=== PATIENT | female | born 1980 | race Caucasian/White ===

== ENCOUNTER 2017-02-16 09:39 | Emergency (ER) | payer OTHER ==
[2017-02-16 10:26] VITALS: BMI 31.6
--- NOTE | 2017-02-16 10:35 | OBHP ---
Datetime: 02/16/2017 10:31 IP Adm Impression: , intrauterine IP Chief Complaint Other: send for bp check Admit Comment, IP Provider: at 34.4weeks send from pmd for bp check. pt c/o heart burn, no heda mamadou or b;urry vision, no ctxs, vb, lof,+fm. obhx 3 x c/s pmh den med pnv all nkda psh c/s soch de a/p 4p3 at 34+weeks r/o pih cbc/bmp/ua/ptt/pt/liver bp mon cont close obser Pelvic Type - PN: Adequate Extremities - PN: Normal Abdomen - PN: Normal Back - PN: Normal Breast - PN: Normal Lungs - PN: Normal Heart - PN: Normal Thyroid - PN: Normal Neurologic - PN: Normal HEENT - PN: Normal General - PN: Normal FHR - Baseline A Provider: 120 Contraction Comments Provider: none Comments, ACOG Physical Exam: gtravid,non tender ext no edema,no calf ten Vital Signs Provider: Reviewed; Within Normal Limits NICHD Variability Prov Fetus A: Moderate 6-25bpm NICHD Accel Fetus A IP Provider: 15X15 FHR Category Provider Fetus A: Category I Genitourinary Exam: Normal DTRs - PN: Normal
[2017-02-16 10:45] LABS: HEMATOCRIT 30.7 % (34.0-47.0); MEAN CORPUSCULAR HGB CONC 31.8 g/dL (33.0-37.0); RED CELL DISTRIBUTION WIDTH 17.1 % (11.5-14.5); WHITE BLOOD COUNT 10.1 K/uL (4.8-10.8)
[2017-02-16 10:46] LABS: MEAN CELL VOLUME 72.3 fL (81.0-99.0)
[2017-02-16 10:48] LABS: RBC URINE < 1 /hpf (0-3); URINE BACTERIA RARE (<OCC); URINE BILIRUBIN NEGATIVE (NEGATIVE); URINE BLOOD NEGATIVE (NEGATIVE); URINE COLOR Yellow (YELLOW); URINE GLUCOSE (UA) NORMAL (Normal); URINE KETONE NEGATIVE (NEGATIVE); URINE LEUKOCYTE ESTERASE NEG Leu/uL (Negative); URINE PROTEIN NEGATIVE (NEGATIVE); URINE UROBILINOGEN NORMAL mg/dL (0.2-1.0); WBC URINE 1 /hpf (0-5)
--- NOTE | 2017-02-16 10:57 | OBHP ---
Datetime: 02/16/2017 10:54 Admit Comment, IP Provider: pt was seen at bed side. feels ok bp normal blood work normal plan dc home po hyration preeclamptic s/s given f/[facility] clinic in 1week FHR - Baseline A Provider: 120 Contraction Comments Provider: none Vital Signs Provider: Reviewed; Within Normal Limits NICHD Variability Prov Fetus A: Moderate 6-25bpm NICHD Accel Fetus A IP Provider: 15X15 FHR Category Provider Fetus A: Category I
[2017-02-16 10:58] LABS: CHLORIDE 102 mmol/L (98-107); POTASSIUM 3.6 mmol/L (3.6-5.2); SODIUM 134 mmol/L (132-148)
--- NOTE | 2017-02-16 10:59 | OBDCSUM ---
Datetime: 02/16/2017 10:56 Discharged to, Provider: Home Follow up at, Provider: 1wee Follow up in weeks, Provider: clinic Discharge Comment, Provider: work normal plan dc home po hyration preeclamptic s/s given f/[facility] clinic in 1week Discharge Diagnosis Prov Other: 34 wee nst r/o pih
[2017-02-16 11:00] LABS: GFR AFRICAN-AMERICAN > 60
[2017-02-16 11:01] LABS: ALB/GLOB RATIO 0.8 (1.0-2.1); ALKALINE PHOSPHATASE 199 U/L (38-126); ALT/SGPT 23 U/L (9-52); AST/SGOT 17 U/L (14-36); BILIRUBIN,DIRECT 0.6 mg/dL (0.0-0.4); BILIRUBIN,TOTAL 0.7 mg/dL (0.2-1.3); BLOOD UREA NITROGEN 7 mg/dL (7-17); CALCIUM 8.6 mg/dl (8.6-10.4); CARBON DIOXIDE 21 mmol/L (22-30); GLUCOSE,RANDOM 81 mg/dL (65-105); TOTAL PROTEIN 7.1 g/dL (6.3-8.3)
== END 2017-02-16 10:56 | disposition home or self-care (01) ==
LOC: C.EROB 09:39
DX: O14.93 Unspecified pre-eclampsia, third trimester (principal); Z3A.34 34 weeks gestation of pregnancy

== ENCOUNTER 2017-03-21 07:34 | Inpatient (IN) | payer OTHER ==
[2017-03-21] MEDS ORDERED: cefOXitin IV 2 gm in Dextrose 2 GM/50 ML BAG IVPB ONE ×2 (07:48→09:04)
[2017-03-21] MEDS ORDERED: Sodium Citrate/Citric Acid 15 ml Sol PO ONE (07:48)
[2017-03-21] MEDS ORDERED: Lactated Ringer's 1,000 ML IV SCH (08:00)
[2017-03-21 08:03] VITALS: BMI 31.9
--- NOTE | 2017-03-21 08:20 | OBADHP ---
Datetime: 03/21/2017 08:02 Admit Comment, IP Provider: at 39+weeks her for schuled repeat c/s and btl,no ctxs, vb, lof,+fm .no hedache or blurry vision obhx 2 x c/s pmh ch htn med pnv all nkda psh c/s soch de a/p at 39-weeks previous c/s and btl admit to l_d npo/ivf labs pih labs pain ma anthesia aware skin atibiotics informed conset taken Comments, ACOG Physical Exam: gravid,non tender ext no edema,no calf ten IP Hx Assessment: The History has been Reviewed and is Current IP Chief Complaint: Scheduled Section EGA AdmitDate IP: 39.2 IP Adm Impression: Term, intrauterine ; No Active Labor IP Admit Plan: Admit to unit Datetime: 02/16/2017 10:54 Pelvic Type - PN: Adequate Extremities - PN: Normal Abdomen - PN: Normal Back - PN: Normal Breast - PN: Normal Lungs - PN: Normal Heart - PN: Normal Thyroid - PN: Normal Neurologic - PN: Normal HEENT - PN: Normal General - PN: Normal FHR - Baseline A Provider: 120 Contraction Comments Provider: none Vital Signs Provider: Reviewed; Within Normal Limits NICHD Variability Prov Fetus A: Moderate 6-25bpm NICHD Accel Fetus A IP Provider: 15X15 FHR Category Provider Fetus A: Category I Genitourinary Exam: Normal DTRs - PN: Normal Datetime: 02/16/2017 10:31 IP Chief Complaint Other: send for bp check
[2017-03-21 08:35] LABS: BASO # 0.1 K/uL (0.0-0.2); EOS # 0.1 K/uL (0.0-0.7); EOS % 1.2 % (0.0-4.0); HEMATOCRIT 31.9 % (34.0-47.0); LYMPH % 17.5 % (20.0-40.0); MEAN CELL VOLUME 70.4 fL (81.0-99.0); MEAN CORPUSCULAR HEMOGLOBIN 22.4 pg (27.0-31.0); MEAN CORPUSCULAR HGB CONC 31.8 g/dL (33.0-37.0); MEAN PLATELET VOLUME 10.6 fL (7.2-11.7); MONO # 0.7 K/uL (0.0-0.8); WHITE BLOOD COUNT 11.1 K/uL (4.8-10.8)
[2017-03-21 08:42] LABS: CHLORIDE 101 mmol/L (98-107)
[2017-03-21 08:43] LABS: POTASSIUM 3.8 mmol/L (3.6-5.2); SODIUM 135 mmol/L (132-148)
[2017-03-21 08:45] LABS: ALB/GLOB RATIO 0.9 (1.0-2.1); ALKALINE PHOSPHATASE 242 U/L (38-126); AST/SGOT 19 U/L (14-36); BILIRUBIN,DIRECT 0.5 mg/dL (0.0-0.4); BILIRUBIN,TOTAL 0.9 mg/dL (0.2-1.3); BLOOD UREA NITROGEN 5 mg/dL (7-17); CARBON DIOXIDE 20 mmol/L (22-30); GFR AFRICAN-AMERICAN > 60; GLUCOSE,RANDOM 84 mg/dL (65-105); TOTAL PROTEIN 7.2 g/dL (6.3-8.3); URINE BILIRUBIN NEGATIVE (NEGATIVE); URINE BLOOD NEGATIVE (NEGATIVE); URINE COLOR Yellow (YELLOW); URINE GLUCOSE (UA) NORMAL (Normal); URINE KETONE NEGATIVE (NEGATIVE); URINE LEUKOCYTE ESTERASE NEG Leu/uL (Negative); URINE PROTEIN NEGATIVE (NEGATIVE); URINE UROBILINOGEN NORMAL mg/dL (0.2-1.0)
[2017-03-21 08:46] LABS: ALT/SGPT 30 U/L (9-52); CALCIUM 8.9 mg/dl (8.6-10.4); INR 0.9
[2017-03-21] MEDS ORDERED: OXYTOCIN IV ONE (09:04)
[2017-03-21] MEDS ORDERED: LR IV ONE (09:04)
[2017-03-21] MEDS ORDERED: Sodium Citrate/Citric Acid 15 ml Sol ONE (09:04)
[2017-03-21] MEDS ORDERED: Oxytocin 10 Units/ml Inj ONE (09:08)
[2017-03-21] MEDS ORDERED: ePHEDrine 50 mg/ml Inj ONE (10:05)
[2017-03-21] MEDS ORDERED: Morphine 1 mg/ml preservative-free Inj(Duramorph) ONE (10:05)
[2017-03-21] MEDS ORDERED: DiphenhydrAMINE 50 mg/ml Inj IVP PRN (11:19)
[2017-03-21] MEDS ORDERED: Oxycodone/Acetaminophen 5/325 mg Tab PO PRN ×2 (12:23)
--- NOTE | 2017-03-21 12:27 | PCM.SURG1 ---
Surgeon's Initial Post Op Note - Surgeon's Notes Surgeon: dr ratliff Artillery Specialist: dr thompson Type of Anesthesia: Spinal Anesthesia Administered By: dr astorga Pre-Operative Diagnosis: 36 yr at 39+weeks previous section and bi ;atera;l section Operative Findings: see the op reoprt Post-Operative Diagnosis: same Operation Performed: repeat section and bilaterl tubal ligtion Specimen/Specimens Removed: portion of right and let tube. cord blood Estimated Blood Loss: EBL {In ML}: 800 Blood Products Given: N/A Drains Used: No Drains Post-Op Condition: Good Date of Surgery/Procedure: 03/21/17 Time of Surgery/Procedure: 11:00
--- NOTE | 2017-03-21 20:30 | OBDS ---
DELIVERY PERSONNEL Delivery Doctor: Erick Flores MD Scrub Nurse: Joy Piedra OBT Composing Machine Operator: Norah Rainey RN Anesthesiologist: Abbi David MD Resident: Jay Darnell MATERNAL INFORMATION Delivery Anesthesia: Spinal Medications in Delivery: 20 units pitocin Estimated Blood Loss (ml): 800 Placenta Cultured: No Maternal Complications: None Provider Comments: baby deliverd in rubio. endometrium clean no com btl done LABOR SUMMARY EDC: 03/26/2017 00:00 No. Babies in Womb: 1 STAGES OF LABOR Stage 3 hrs: 0 Stage 3 min: 1 CSECTION DELIVERY Primary Indication: Repeat Elective Secondary Indication: N/A CSection Urgency: Elective CSection Incidence: Repeat Labor: No Labor Elective: Elective CSection Incision: Lower Uterine Transverse Sterilization Procedure: Janneth BABY A INFORMATION Delivery Date/Time: 03/21/2017 10:31 Method of Delivery: Born in Route : No : N/A Forceps: N/A Vacuum Extraction: N/A Shoulder Dystocia : No SHOULDER DYSTOCIA BABY A Infant Delivery Date/Time: 03/21/2017 10:31 PRESENTATION/POSITION BABY A Presentation: Cephalic Cephalic Presentation: Vertex Vertex Position: Left Occipital Anterior Breech Presentation: N/A PLACENTA INFORMATION BABY A Placenta Delivery Time : 03/21/2017 10:32 Placenta Method of Delivery: Manual Removal Placenta Status: Delivered SCORES BABY A Heart Rate 1 min: >100 bpm Resp Effort 1 min: Good Cry Reflex Irritability 1 min: Cough or Sneeze or Pulls Away Muscle Tone 1 min: Active Motion Color 1 min: Body [place], Extremities Blue Resuscitation Effort 1 min: Tactile Stimulation SCORE 1 MIN: 9 Heart Rate 5 min: >100 bpm Resp Effort 5 min: Good Cry Reflex Irritability 5 min: Cough or Sneeze or Pulls Away Muscle Tone 5 min: Active Motion Color 5 min: Body [place], Extremities Blue Resuscitation Effort 5 min: N/A SCORE 5 MIN: 9 INFANT INFORMATION BABY A Gestational Age at Delivery: 39.2 Gestational Status: Term Infant Outcome : Liveborn Infant Condition : Stable Sex: Female IDENTIFICATION/MEDS BABY A ID Band Number: [id number] ID Band Location: Left Leg; Left Arm Sensor Applied: Yes Sensor Number: [id number] Sensor Location : Cord Clamp Vitamin K Given : Not Given Erythromycin Given: Not Given WEIGHT/LENGTH BABY A Infant Birthweight (gms): 3125 Weight (lb): 6 Infant Weight (oz): 14 Infant Length Inches: 18.75 Length cms: 47.6 CORD INFORMATION BABY A No. Cord Vessels: 3 Nuchal Cord : N/A Suction: Mouth; Nose ASSESSMENT BABY A Complications: None Physical Findings at Delivery: Within Normal Limits Respirations: Appears Normal Life Agent/ALS Called : No Infant Care By: Andreea Webber RN Transferred To: Remains with Mother
[2017-03-21] MEDS: Simethicone 80 mg Chewtab PO SCH (22:36)
--- NOTE | 2017-03-22 05:20 | OP ---
PROCEDURE DATE: 03/21/2017 PREOPERATIVE DIAGNOSIS: A 36 years old 4, para 3, at 39 weeks for scheduled repeat section and bilateral tubal ligation. PROCEDURE PERFORMED: Repeat section and bilateral tubal dilation. SURGEON: Erick Flores MD BATTERY VENT PLUG INSERTER: Dr. Pollo Wahl, who was present throughout the surgery for exposure, retraction, and pushing at the time of delivery and helping with the tubal ligation. TYPE OF ANESTHESIA: Spinal. ANESTHESIOLOGIST: Daniel Rubi MD ESTIMATED BLOOD LOSS: 800 mL. COMPLICATIONS: None. DESCRIPTION OF PROCEDURE: After informed consent was obtained, the patient was brought to the operating room, placed on the table, where spinal anesthesia was given. When anesthesia was found to be sufficient, she was prepped and draped in normal sterile fashion. At the site of the previous skin incision, incision was made with a knife, the subcutaneous with the Bovie. The fascia was excised on both the sides using curved Dowling scissors. The fascia was first from the site of the umbilicus and then at the rectus muscle. At the site of the pubic wound, the rectal muscle was lift up with Allis and then with a knife, we found there was adhesions on the omentum going to the anterior wall of the uterus. Two Taty's were placed and the lesion was taken out and it was tied up with a free tie. After that, there was an adhesion down going towards the bladder. It was retracted and taken out with the Metzenbaum scissors. After bladder blade was placed, bladder flap was created. Lower uterine segment incision was made with a knife, each was extended on both the sides using curved Dowling scissors. Baby delivered in NARAYAN position. Cord was clamped and cut. Baby was handed to the awaiting occupancy specialist. Placenta delivered manually. Uterus was exteriorized and cleared of all the clots and debris. The uterus was very boggy. Extra Pitocin was given. Uterine incision was closed with #1 Vicryl in running interlocking fashion. Second layer was closed with the same stitch. Both the tubes and ovaries looked normal. The patient consented for tubal ligation and bilateral tubal ligation was done with a modified Fillmore technique, and after cul-de-sac was cleared of all the clots and debris, uterus was returned back to the abdominal cavity. The incision looked normal. After that, the peritoneum was closed using 2-0 Vicryl in running interlocking fashion. The muscle was closed using 2-0 Vicryl in running interlocking fashion. On the lateral wall of the right side, there was bleeding, so the stitch was placed and it was hemostatic, then the fascia was closed using #1 Vicryl in running interlocking fashion. Subcutaneous tissue was closed with 0 Vicryl in interrupted fashion. Skin was closed using esturado. The patient tolerated the procedure well. Lap, sponge, and instrument counts were correct x2. Erick Flores MD
[2017-03-22 07:41] LABS: HEMATOCRIT 26.7 % (34.0-47.0); MEAN CELL VOLUME 70.3 fL (81.0-99.0); MEAN CORPUSCULAR HEMOGLOBIN 22.4 pg (27.0-31.0); MEAN CORPUSCULAR HGB CONC 31.8 g/dL (33.0-37.0); MEAN PLATELET VOLUME 10.2 fL (7.2-11.7); RED CELL DISTRIBUTION WIDTH 17.9 % (11.5-14.5)
[2017-03-22 07:54] LABS: WHITE BLOOD COUNT 17.1 K/uL (4.8-10.8)
[2017-03-22] MEDS: Simethicone 80 mg Chewtab PO SCH ×4 (09:41→21:44)
[2017-03-22] MEDS ORDERED: Bisacodyl 5mg EC Tab PO ONE (12:24)
--- NOTE | 2017-03-22 16:24 | OBPPN ---
Datetime: 03/22/2017 08:29 PP Pain Prov: Within normal limits PP Nausea Prov: Denies PP Flatus Prov: Yes PP Heart Prov: Normal PP Lungs Prov: Normal PP Abdomen/Uterus Prov: Normal PP Lochia Prov: Normal PP CVA Tenderness Prov: Normal PP Extremities Prov: Normal PP C/S Incision Prov: Normal PP Progress Prov: Normal PP Impression Prov: Normal progression PP Plan Prov: Continue present management PP Progress Note Prov: S-patient reports adequate pain contro.Patient denies nausea, vomitong, heada mamadou, chest pain, shortness of breath, numbness or tingling in hands and feet O-VSS Afberile Fundus firm and below umbilcius Incision clean, dry and intact Extremities no calf tenderness A/P Patient s/p csection POD 1 doing well -continue routine postop care -encourage ambulation and po fluid intake -follow up am cbc Vital Signs Provider PP: Reviewed; Within Normal Limits
[2017-03-23] MEDS: Simethicone 80 mg Chewtab PO SCH ×4 (09:35→22:02)
--- NOTE | 2017-03-24 07:28 | OBPPN ---
Datetime: 03/24/2017 07:26 PP Pain Prov: Within normal limits PP Nausea Prov: Denies PP Flatus Prov: Yes PP Abdomen/Uterus Prov: Normal PP Lochia Prov: Normal PP Extremities Prov: Normal PP Comments Phys Exam Prov: fudus below umblicus ext no edema,no calf ten incision clean and dry PP Impression Prov: Normal progression PP Plan Prov: Discharge PP Progress Note Prov: pt was seen at bed side, pain under control, no n/v, tolerating deit,voiding, min lochia, flatus + pod#3 s/p c/s dc home no sex percocet prn f/u o tuesday for estuardo removal Vital Signs Provider PP: Reviewed; Within Normal Limits
--- NOTE | 2017-03-24 07:28 | OBDCSUM ---
Datetime: 03/24/2017 07:27 Discharged to, Provider: Home Follow up at, Provider: tuesday Disch Instr Activity: Normal activity Discharge Diagnosis, Provider: Term Delivered Follow up in weeks, Provider: clinic Disch Activity Restrictions: No exercising; No lifting; No driving; Minimize walking; Minimize stair -climbing; No sexual activity; Nothing in vagina - [place], tampons, douche Discharge Comment, Provider: de home no sex percocet prn f/u o tuesday for estuardo removal Discharge Diagnosis Prov Other: s/p c/s btl
[2017-03-24 08:40] VITALS: BP 128/86; PULSE 61; RESP 18; TEMP 97.7; O2SAT 100
[2017-03-24] MEDS: Simethicone 80 mg Chewtab PO SCH (09:07)
--- NOTE | 2017-03-24 09:10 | CP.PCM.DIS ---
Provider - Provider Date of Admission: 03/21/17 07:34 Attending physician: Erick Flores MD Time Spent in preparation of Discharge (in minutes): 30 Hospital Course - Lab Results Lab Results: Most Recent Lab Values WBC 17.1 K/uL (4.8-10.8) H D 03/22/17 07:33 RBC 3.79 Mil/uL (3.80-5.20) L 03/22/17 07:33 Hgb 8.5 g/dL (11.0-16.0) L 03/22/17 07:33 Hct 26.7 % (34.0-47.0) L 03/22/17 07:33 MCV 70.3 fL (81.0-99.0) L 03/22/17 07:33 MCH 22.4 pg (27.0-31.0) L 03/22/17 07:33 MCHC 31.8 g/dL (33.0-37.0) L 03/22/17 07:33 RDW 17.9 % (11.5-14.5) H 03/22/17 07:33 Plt Count 215 K/uL (130-400) 03/22/17 07:33 MPV 10.2 fL (7.2-11.7) 03/22/17 07:33 Neut % (Auto) 74.3 % (50.0-75.0) 03/21/17 08:26 Lymph % (Auto) 17.5 % (20.0-40.0) L 03/21/17 08:26 [place] % (Auto) 6.0 % (0.0-10.0) 03/21/17 08:26 Eos % (Auto) 1.2 % (0.0-4.0) 03/21/17 08:26 Baso % (Auto) 1.0 % (0.0-2.0) 03/21/17 08:26 Neut # 8.3 K/uL (1.8-7.0) H 03/21/17 08:26 Lymph # 2.0 K/uL (1.0-4.3) 03/21/17 08:26 [place] # 0.7 K/uL (0.0-0.8) 03/21/17 08:26 Eos # 0.1 K/uL (0.0-0.7) 03/21/17 08:26 Baso # 0.1 K/uL (0.0-0.2) 03/21/17 08:26 PT 10.7 SECONDS (9.7-12.2) 03/21/17 08:26 INR 0.9 03/21/17 08:26 APTT 25 SECONDS (21-34) 03/21/17 08:26 Sodium 135 mmol/L (132-148) 03/21/17 08:26 Potassium 3.8 mmol/L (3.6-5.2) 03/21/17 08:26 Chloride 101 mmol/L (98-107) 03/21/17 08:26 Carbon Dioxide 20 mmol/L (22-30) L 03/21/17 08:26 Anion Gap 18 (10-20) 03/21/17 08:26 BUN 5 mg/dL (7-17) L 03/21/17 08:26 Creatinine 0.6 MG/DL (0.7-1.2) L 03/21/17 08:26 Est GFR ( Amer) > 60 03/21/17 08:26 Est GFR (Non-Af Amer) > 60 03/21/17 08:26 Random Glucose 84 mg/dL (65-105) 03/21/17 08:26 Calcium 8.9 mg/dl (8.6-10.4) 03/21/17 08:26 Total Bilirubin 0.9 mg/dL (0.2-1.3) 03/21/17 08:26 Direct Bilirubin 0.5 mg/dL (0.0-0.4) H 03/21/17 08:26 AST 19 U/L (14-36) 03/21/17 08:26 ALT 30 U/L (9-52) 03/21/17 08:26 Alkaline Phosphatase 242 U/L (38-126) H D 03/21/17 08:26 Total Protein 7.2 g/dL (6.3-8.3) 03/21/17 08:26 Albumin 3.4 g/dL (3.5-5.0) L 03/21/17 08:26 Globulin 3.8 gm/dL (2.2-3.9) 03/21/17 08:26 Albumin/Globulin Ratio 0.9 (1.0-2.1) L 03/21/17 08:26 Urine Color Yellow (YELLOW) 03/21/17 08:26 Urine Clarity Hazy (Clear) 03/21/17 08:26 Urine pH 6.0 (5.0-8.0) 03/21/17 08:26 Ur Specific [place] 1.016 (1.003-1.030) 03/21/17 08:26 Urine Protein Negative mg/dL (NEGATIVE) 03/21/17 08:26 Urine Glucose (UA) Normal mg/dL (Normal) 03/21/17 08:26 Urine Ketones Negative mg/dL (NEGATIVE) 03/21/17 08:26 Urine Blood Negative (NEGATIVE) 03/21/17 08: Urine Nitrate Negative (NEGATIVE) 03/21/17 08:26 Urine Bilirubin Negative (NEGATIVE) 03/21/17 08:26 Urine Urobilinogen Normal mg/dL (0.2-1.0) 03/21/17 08:26 Ur Leukocyte Esterase Neg [place]/uL (Negative) 03/21/17 08:26 RPR Nonreactive (NONREACTIVE) 03/21/17 08:26 Blood Type O POSITIVE 03/21/17 08:26 Antibody Screen Positive 03/21/17 08:26 Antibody Identification Anti M 03/21/17 08:26 - Hospital Course Hospital Course: Ms. Townsend is a 36yo F who presented at 39+ weeks for her scheduled repeat C/S and BTL. The patient had no ctxs, vb, lof, headaches, blurry vision on presentations, but was +fm. The patient has obhx 2xC/S, PMHx HTN and CH. On the unit, the patient was afebrile, and all vital signs were within normal limits. RPR was nonreactive. UA was negative for any abnormalities. WBC upon presentation was 11.1 H/H was 10.1/31.9 on admission. The patient was admitted to the L&D floor. The elective was done by Ob Dr. Flores, spinal anesthesia was done by Dr. David. the baby was delivered on 03/21/17 @ 10:31 and required no vacuum extraction and had no shoulder dystocia. score was 9 and 9, at 1 min and 5mins, respectively. birthweight was 3125gms. On POD1, pt was +flatus, denied n/v. pain was wnl and controlled adequately with meds. Fundus was firm and below umbilicus, and incision was clean, dry and intact. Labs on POD1 were WBC 17.1, H/H was 8.5/26.7, respectively. Pain was controlled on Motrin. On morning of 03/24/17, the pt states that she had a BM, and is urinating well with no issues, with minimal lochia. . pt has appropriate pain, well controlled by meds. tolerating diet well. Pt is instructed to refrain from sex, and to f/u in clinic on Tuesday for estuardo removal; if not tuesday, pt is instructed to go to the [facility] on tuesday. Pt is given script for Percocet 5 PRN, and iron. - Date & Time of H&P Date of H&P: 04/21/17 Time of H&P: 08:20 Discharge Exam - Head Exam Head Exam: NORMAL INSPECTION, NORMOCEPHALIC - Eye Exam Eye Exam: Normal appearance, PERRL - ENT Exam ENT Exam: Mucous Membranes Moist, Normal Exam - Neck Exam Neck exam: Full Rom, Normal Inspection - Respiratory Exam Respiratory Exam: NORMAL BREATHING PATTERN. absent: Accessory Muscle Use, Rales , Rhonchi, Wheezes - Cardiovascular Exam Cardiovascular Exam: RRR. absent: Gallop, JVD, Rubs - GI/Abdominal Exam GI & Abdominal Exam: Normal Bowel Sounds, Tenderness, Unremarkable. absent: Guarding, Rebound Additional comments: fundus below umbilicus incision clean, dry, intact estuardo in place - Extremities Exam Additional comments: no calf tenderness or edema - Neurological Exam Neurological exam: Alert, Normal Gait, Oriented x3 - Psychiatric Exam Psychiatric exam: Normal Affect, Normal Mood - Skin Skin Exam: Normal Color, Warm Discharge Plan - Discharge Medications Prescriptions: Ferrous Sulfate [Feosol] 325 mg PO DAILY #30 tab oxyCODONE/Acetaminophen [Percocet 5/325 mg Tab] 1 ea PO Q6 PRN #20 tab PRN Reason: pain - Follow Up Plan Condition: GOOD Disposition: HOME/ ROUTINE Instructions: Section (DC), Your Baby (DC), Expression, Collection and Storage of Breastmilk (DC), How to Hold and Breastfeed Your Baby (DC), and Nipple Soreness (DC), How to Increase Your Milk Supply ( DC), How to Tell if Your Baby is Getting Enough Breast Milk (DC), and Your Diet (DC), Jaundice in Newborns (DC), Lay Person CPR on Newborns (DC), Your [place]'s Appearance (DC)
== END 2017-03-24 12:55 | disposition home or self-care (01) | DRG 371 ==
LOC: C.4D 07:34 → C.4M 14:00
PROVIDERS: ADMIT Obstetrics & Gynecology; ATTEND Obstetrics & Gynecology
PROC: 10D00Z1 Extraction of Products of Conception, Low, Open Approach (ICD-10-PCS; principal; 2017-03-21)
PROC: 0UB70ZZ Excision of Bilateral Fallopian Tubes, Open Approach (ICD-10-PCS; 2017-03-21)
DX: O34.211 Maternal care for low transverse scar from previous cesarean delivery (principal); I10 Essential (primary) hypertension; O16.4 Unspecified maternal hypertension, complicating childbirth; Z3A.39 39 weeks gestation of pregnancy; Z37.0 Single live birth; Z30.2 Encounter for sterilization